=== PATIENT | female | born 1950 | race African-American/Black ===

== ENCOUNTER 2021-05-28 07:05 | Inpatient (IN) | payer MEDICARE, OTHER ==
[~2021-05-28] VITALS: Ht 162.6 cm; Wt 71.0 kg
[~2021-05-28 07:05] MED LIST: ADVAIR 250-501 EACH INH; AMBIEN10 MG PO; ASPIRIN EC325 MG PO; AZITHROMYCIN250 MG PO; BENADRYL25 MG PO; CARAFATE1 GM PO; CYCLOBENZAPRINE10 MG PO; DOXYCYCLINE HY100 M2 PO; FEOSOL325 MG PO; HCTZ25 MG PO; IBUPROFEN400 M1 PO; K-DUR20 MEQ PO; LOMOTIL1 EACH PO; MEDROL 4MG DOSEP4 MG PO; NEURONTIN100 MG PO; NORVASC5 MG PO; PERIDEX SSP; PHENERGAN25 M1 PO; PREDNISONE 20MG20 MG PO; PROTONIX 40MG T40 MG PO; TOPROL XL 25MG25 MG PO; TUDORZA PRESS400 MCG INH; VENTOLIN (2.5 MG/3 M INH; VIBRAMYCIN100 MG PO; VITAMIN D5000 UNIT PO; XANAX0.25 MG PO; ZPAK PO
[2021-05-28 08:11] LABS: BASOPHIL 0.7 % (0-2); EOSINOPHIL 4.1 % (0-7); HCT 40.4 % (37.0-47.0); HGB 12.3 g/dl (12.5-16.0); LYMPHOCYTE 37.3 % (15-48); MCH 24.4 pg (25.0-31.0); MCHC 30.4 g/dL (32.0-36.0); MONOCYTE 10.3 % (0-12); MPV 11.3 fL (6.0-9.5); NEUTROPHIL 47.1 % (41-80); NRBC 0; PLT 186 K/uL (150-400); RBC 5.05 M/uL (4.20-5.40); RDW 15.3 % (11.5-14.0); WBC 5.6 K/uL (4.0-10.5)
[2021-05-28 08:46] LABS: ALBUMIN 3.5 g/dL (3.4-5.0); BILIRUBIN - TOTAL 0.1 mg/dL (0.2-1.0); BUN/CREAT RATIO (CALC) 18.7 RATIO; CREATININE 0.75 mg/dL (0.51-0.95); GLOBULIN (CALCULATION) 3.3 g/dL; POTASSIUM 4.6 mmol/L (3.5-5.1); TOTAL PROTEIN 6.8 g/dL (6.4-8.2)
[2021-05-28 08:47] LABS: CORONAVIRUS 2019 SARS-COV-2 NEGATIVE (NEGATIVE); INFLUENZA A NAA NEGATIVE (NEGATIVE)
[2021-05-28] MEDS ORDERED: ALPRAZOLAM 1MG T1 MG PO (11:07)
[2021-05-28] MEDS ORDERED: COLESTIPOL HCL1 GM PO (11:10)
[2021-05-28] MEDS ORDERED: HYDROXYZINE PAM25 MG PO (11:12)
[2021-05-28] MEDS ORDERED: TUMERIC (13:22)
[2021-05-28] MEDS ORDERED: PROBIOTIC1 EAC1 PO (13:23)
[2021-05-29 06:16] LABS: BASOPHIL 0.1 % (0-2); EOSINOPHIL 0 % (0-7); HCT 36.8 % (37.0-47.0); HGB 11.5 g/dl (12.5-16.0); LYMPHOCYTE 6.6 % (15-48); MCH 24.6 pg (25.0-31.0); MCHC 31.3 g/dL (32.0-36.0); MCV 78.8 fL (78.0-100.0); MONOCYTE 3.1 % (0-12); NEUTROPHIL 89.7 % (41-80); NRBC 0; PLT 188 K/uL (150-400); RBC 4.67 M/uL (4.20-5.40); RDW 15.2 % (11.5-14.0)
[2021-05-29 06:17] LABS: WBC 14.9 K/uL (4.0-10.5)
[2021-05-29 06:38] LABS: IRON % SATURATION 66.5 %SAT (20-50)
[2021-05-29 06:51] LABS: CREATININE 0.79 mg/dL (0.51-0.95); POTASSIUM 4.1 mmol/L (3.5-5.1)
--- NOTE | 2021-05-30 13:18 | NUR ---
05/30/21 Ms. Coates lives at home with her spouse. She has 02 at 2 L for nocturnal use, portables, nebulizer and a rw. Dr. Lawson is her PCP. Ms. Coates requested a s. chair. After speaking with Jef'kendal, it was explained that insurance will not pay for a s. chair. However, she does qualify for a 3 in 1. The 3in1 was acceptable to Ms. Martin. [employer] will deliver to home.
--- NOTE | 2021-05-30 14:48 | NUR ---
05/30/21 Ms. Coates has requested financial assistance to pay for [employer]air. Her co-pay is approximately $100. [employer] offers a Patient Assistance program. The eligibility requires were presented to Rudolph/Rudolph Coates. They report to be over the income limit. She was presented with [employer] coupons, Isabela Batres APRN, also found a coupon for [employer] for $33.00. Ms. Batres presented this information to Dr. Puri. - Ms. Coates was referred to the [facility] at the time of open enrollment for assistance in finding a Medicare D best suited to their needs.
--- NOTE | 2021-06-01 10:37 | NUR ---
06/01/21 A referral was made to [facility] for nursing and PT per patient choice.
[2021-06-01] MEDS ORDERED: HYDROCODONE-CH473 ML PO (12:50)
[2021-06-01] MEDS ORDERED: DOXYCYCLINE MO100 MG PO (12:50)
[2021-06-01] MEDS ORDERED: MUCINEX1200 MG PO (12:50)
[2021-06-01] MEDS ORDERED: ADVAIR 250/5028 PUFF INH (12:50)
[2021-06-01] MEDS ORDERED: LEVAQUIN750 MG PO (12:50)
[2021-06-01] MEDS ORDERED: FOLIC ACID1 MG PO (15:21)
[2021-06-01] MEDS ORDERED: BACLOFEN 10MG T10 MG PO ×2 (15:21→15:32)
== END 2021-06-01 13:58 | disposition home health service (06) | DRG 190 ==
LOC: FER 07:05 → FMS 09:11
PROVIDERS: Emergency Medicine; Internal Medicine; Nurse Practitioner Acute Care; ADMIT Internal Medicine
DX: J44.1 Chronic obstructive pulmonary disease with (acute) exacerbation (principal); J18.9 Pneumonia, unspecified organism; F13.20 Sedative, hypnotic or anxiolytic dependence, uncomplicated; E87.0 Hyperosmolality and hypernatremia; J44.0 Chronic obstructive pulmonary disease with (acute) lower respiratory infection; Z20.822 Contact with and (suspected) exposure to COVID-19; F17.210 Nicotine dependence, cigarettes, uncomplicated; R09.02 Hypoxemia; I25.10 Atherosclerotic heart disease of native coronary artery without angina pectoris; I11.9 Hypertensive heart disease without heart failure; D50.9 Iron deficiency anemia, unspecified; K21.9 Gastro-esophageal reflux disease without esophagitis; F41.1 Generalized anxiety disorder; F32.A Depression, unspecified; Z99.81 Dependence on supplemental oxygen; Z88.0 Allergy status to penicillin; Z88.6 Allergy status to analgesic agent; Z91.041 Radiographic dye allergy status; Z90.49 Acquired absence of other specified parts of digestive tract; Z90.710 Acquired absence of both cervix and uterus; Z98.890 Other specified postprocedural states; Z79.82 Long term (current) use of aspirin; Z79.899 Other long term (current) drug therapy
CPT/HCPCS: 36415; 36600; 71045; 80048; 80053; 82607; 82728; 82746; 82803; 83540; 83550; 83880; 84484; 85025; 87070; 87205; 93005; 94640; 94667; 94668; 94762; J1650; J1956; J2405; J2916; J2920; J2930; J7040; J7050; U0002